=== PATIENT | female | born 1950 | race Caucasian/White ===

== ENCOUNTER 2019-08-09 15:05 | Outpatient (CLI) | payer MEDICARE, SELFPAY ==
--- NOTE | ~2019-08-09 | US_ITS ---
EXAMINATION: US venous doppler LE EXAM DATE: 08/09/2019 15:59 INDICATION: Bilateral leg swelling. TECHNIQUE: Multiple grayscale, color flow and Doppler images of the lower extremity deep venous syste ms bilaterally were obtained and reviewed. Comparison is made to prior examination from 06/14/2019. FINDINGS: Right side: The right common femoral, femoral and profunda veins demonstrate normal color flow, respi ratory variation, augmentation and compressibility. Compressibility, color flow confirmed within the right popliteal, posterior tibial, peroneal, and greater saphenous veins. Small Toribio's cyst. Left side: The left common femoral, femoral and profunda veins demonstrate normal color flow, respira tory variation, augmentation and compressibility. Compressibility, color flow confirmed within the l eft popliteal, posterior tibial, peroneal, and greater saphenous veins. Small Toribio's cyst. IMPRESSION: 1. No lower extremity deep venous thrombosis bilaterally. 2. Small bilateral Toribio's cysts. Reviewed, dictated and finalized at location B. S CLOSER
== END 2019-08-09 15:06 | disposition home or self-care (01) ==
LOC: ANHIMG 15:13
PROVIDERS: PCP Internal Medicine; Visit Provider Orthopaedic Surgery
DX: M79.89 Other specified soft tissue disorders (principal); M71.22 Synovial cyst of popliteal space [Baker], left knee; M71.21 Synovial cyst of popliteal space [Baker], right knee
CPT/HCPCS: 93970

== ENCOUNTER 2020-04-20 16:08 | Outpatient (CLI) | payer MEDICARE, SELFPAY ==
[2020-04-20 17:45] LABS: Iron 148 ug/dL (37-170)
[2020-04-20 17:47] LABS: Lactate Dehydrogenase 799 U/L (313-618)
[2020-04-20 18:08] LABS: Percent Iron Saturation 44 % (20-50)
[2020-04-20 20:41] LABS: Folic Acid > 20.0 ng/mL (2.76->20)
[2020-04-22 21:13] LABS: Antithrombin III Activity 111 % normal (80-135)
[2020-04-23 22:09] LABS: Lupus dRVVT 1:1 Mix Interpreta Not Indicated; Lupus dRVVT Screen 28 sec (<=45); PTT-LA Screen 27 sec (<=40)
== END 2020-04-20 16:09 | disposition home or self-care (01) ==
PROVIDERS: PCP Internal Medicine; Visit Provider Internal Medicine Hematology & Oncology
DX: I26.99 Other pulmonary embolism without acute cor pulmonale (principal); D64.9 Anemia, unspecified
CPT/HCPCS: 36415; 82607; 82728; 82746; 83090; 83540; 83550; 83615; 84443; 85300; 85303; 85306; 85613; 85730; 86146

== ENCOUNTER → 2020-04-25 11:10 | Outpatient (CLI) | payer MEDICARE, SELFPAY ==
--- NOTE | ~2020-04-25 | CT_ITS ---
EXAMINATION: CT chest w con DATE: 04/25/2020 12:16 INDICATION: Six-month follow-up of 5 mm left lower lobe nodule TECHNIQUE: Computed tomography (CT) of the chest was performed with 75 cc Omnipaque 350 intravenous c ontrast. Automated exposure control and iterative reconstruction technique were employed. Exam dose: 434.60 mGy-cm total exam DLP. COMPARISON: 01/18/2019 CT pulmonary scan FINDINGS: Stable 5 mm nodular soft tissue density in the dependent lower aspect of the left lower lob e, not significantly changed in 15 months, likely benign. Extensive bullous emphysema is again noted bilaterally. No interval pulmonary mass lesion or any infiltrate or consolidation is detected. No hilar or mediastinal mass lesion or lymphadenopathy. There is aortic and great vessel and coronary atherosclerotic calcification. Normal heart size. No pericardial or pleural effusion. 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 Small sliding hiatal hernia. There are 2 probable very small gallstones. IMPRESSION: Bullous emphysema Stable 5 mm nodular density in the dependent lower left lower lobe, stable for over 15 months, most c onsistent with benign process Reviewed, dictated and finalized at [facility]. Reviewed, dictated and finalized at location A. DCASTER IMPRESSION: Bullous emphysema Stable 5 mm nodular density in the dependent lower left lower lobe, stable for over 15 months, most consistent with benign process
[2020-04-25 11:51] LABS: Estimated Glomerular Filt Rate 55
== END ==
PROVIDERS: PCP Internal Medicine; Visit Provider Internal Medicine Hematology & Oncology
DX: J43.9 Emphysema, unspecified (principal)
CPT/HCPCS: 71260; Q9967

== ENCOUNTER 2020-04-27 14:58 | Outpatient (CLI) | payer MEDICARE, SELFPAY ==
[2020-04-27 15:36] LABS: Basophils Percent Auto 0.6 % (0.2-1.2); Eosinophils Absolute Auto 0.5 K/mm3 (0-0.3); Eosinophils Percent Auto 8.8 % (0-4.4); Hematocrit 25.9 % (37.0-47.0); Hemoglobin 8.2 g/dL (12.0-15.0); Immature Granulocyte Absolute 0.01 K/mm3 (0.00-0.031); Immature Granulocyte Percent A 0.2 % (0-0.5); Lymphocytes Absolute Auto 1.31 K/mm3 (0.9-3.2); Lymphocytes Percent Auto 25.6 % (18.3-44.2); Mean Corpuscular HGB Conc 31.7 g/dl (32-36); Mean Corpuscular Hemoglobin 30.1 pg (26-34); Mean Corpuscular Volume 95.2 fl (80-100); Mean Platelet Volume 10.5 fl (7.4-10.4); Monocytes Absolute Auto 0.8 K/mm3 (0.1-0.6); Monocytes Percent Auto 15.1 % (2.6-8.5); Neutrophils Absolute Auto 2.5 K/mm3 (1.3-6.7); Neutrophils Percent Auto 49.7 % (45.5-73.1); Nucleated Red Blood Cells Perc 0.4 % (0.0-0.2); Platelet Count Result 132 k/mm3 (150-375); Red Blood Count 2.72 M/mm3 (4.2-5.4); Red Cell Distribution Width 23.3 % (11.5-14.5); White Blood Count 5.1 K/mm3 (4.5-10.0)
[2020-04-27 18:03] LABS: Iron 68 ug/dL (37-170)
[2020-04-27 18:03] LABS: Alanine Aminotransferase 37 U/L (4-35); Albumin Level 4.1 g/dL (3.5-5.1); Alkaline Phosphatase 128 U/L (38-126); Anion Gap 6 mmol/L (8-16); Aspartate Amino Transferase 33 U/L (14-36); Bilirubin,Total 0.8 mg/dL (0.2-1.3); Blood Urea Nitrogen 27 mg/dL (7-17); Calcium 9.8 mg/dL (8.4-10.2); Carbon Dioxide 27 mmol/L (22-30); Chloride 105 mmol/L (98-107); Estimated Glomerular Filt Rate 49; Glucose 134 mg/dL (65-105); Potassium 4.3 mmol/L (3.4-5.0); Sodium 138 mmol/L (137-145)
[2020-04-27 18:15] LABS: Percent Iron Saturation 19 % (20-50)
[2020-05-01 10:55] LABS: Homocysteine 42.9 umol/L (<10.4)
== END 2020-04-27 14:59 | disposition home or self-care (01) ==
PROVIDERS: PCP Internal Medicine; Visit Provider Internal Medicine Hematology & Oncology
DX: D64.9 Anemia, unspecified (principal)
CPT/HCPCS: 36415; 80053; 82728; 83090; 83540; 83550; 85025; 86880

== ENCOUNTER 2020-10-31 09:58 | Outpatient (CLI) | payer MEDICARE, SELFPAY ==
[2020-10-31 10:27] LABS: Basophils Absolute Auto 0.1 K/mm3 (0.0-0.1); Basophils Percent Auto 0.9 % (0.2-1.2); Eosinophils Absolute Auto 0.5 K/mm3 (0-0.3); Eosinophils Percent Auto 6.4 % (0-4.4); Hematocrit 36.5 % (37.0-47.0); Hemoglobin 11.9 g/dL (12.0-15.0); Immature Granulocyte Absolute 0.02 K/mm3 (0.00-0.031); Immature Granulocyte Percent A 0.3 % (0-0.5); Lymphocytes Absolute Auto 1.91 K/mm3 (0.9-3.2); Mean Corpuscular HGB Conc 32.6 g/dl (32-36); Mean Corpuscular Hemoglobin 28.8 pg (26-34); Mean Corpuscular Volume 88.4 fl (80-100); Mean Platelet Volume 9.3 fl (7.4-10.4); Monocytes Absolute Auto 0.7 K/mm3 (0.1-0.6); Monocytes Percent Auto 8.7 % (2.6-8.5); Neutrophils Absolute Auto 4.5 K/mm3 (1.3-6.7); Neutrophils Percent Auto 58.7 % (45.5-73.1); Platelet Count Result 305 k/mm3 (150-375); Red Blood Count 4.13 M/mm3 (4.2-5.4); Red Cell Distribution Width 15.2 % (11.5-14.5); White Blood Count 7.6 K/mm3 (4.5-10.0)
[2020-11-02 20:51] LABS: Homocysteine 13.1 umol/L (<10.4)
== END 2020-10-31 09:59 | disposition home or self-care (01) ==
LOC: ANHLAB 10:00
PROVIDERS: PCP Internal Medicine; Visit Provider Internal Medicine Hematology & Oncology
DX: D64.9 Anemia, unspecified (principal); D68.69 Other thrombophilia
CPT/HCPCS: 36415; 83090; 85025

== ENCOUNTER 2021-09-19 09:16 | Outpatient (CLI) | payer MEDICARE, SELFPAY ==
[2021-09-19 09:42] LABS: Basophils Percent Auto 0.3 % (0.2-1.2); Eosinophils Absolute Auto 0.1 K/mm3 (0-0.3); Hematocrit 38.9 % (37.0-47.0); Immature Granulocyte Absolute 0.04 K/mm3 (0.00-0.031); Immature Granulocyte Percent A 0.4 % (0-0.5); Lymphocytes Percent Auto 21.5 % (18.3-44.2); Mean Corpuscular HGB Conc 30.8 g/dl (32-36); Mean Corpuscular Hemoglobin 29.1 pg (26-34); Mean Corpuscular Volume 94.4 fl (80-100); Mean Platelet Volume 9.9 fl (7.4-10.4); Monocytes Absolute Auto 0.6 K/mm3 (0.1-0.6); Monocytes Percent Auto 6.6 % (2.6-8.5); Neutrophils Absolute Auto 6.5 K/mm3 (1.3-6.7); Neutrophils Percent Auto 70.2 % (45.5-73.1); Platelet Count Result 227 k/mm3 (150-375); Red Blood Count 4.12 M/mm3 (4.2-5.4); Red Cell Distribution Width 15.8 % (11.5-14.5); White Blood Count 9.3 K/mm3 (4.5-10.0)
[2021-09-19 16:17] LABS: Anion Gap 5 mmol/L (8-16); Blood Urea Nitrogen 38 mg/dL (7-17); Calcium 9.1 mg/dL (8.4-10.2); Carbon Dioxide 29 mmol/L (22-30); Chloride 101 mmol/L (98-107); Estimated Glomerular Filt Rate 40; Glucose 227 mg/dL (65-110); Potassium 3.8 mmol/L (3.4-5.0); Sodium 135 mmol/L (137-145)
[2021-09-19 16:24] LABS: Iron 62 ug/dL (37-170)
[2021-09-19 16:34] LABS: Percent Iron Saturation 17 % (20-50)
[2021-09-24 02:19] LABS: Homocysteine 13.1 umol/L (<10.4)
== END 2021-09-19 09:17 | disposition home or self-care (01) ==
LOC: ANHLAB 09:19
PROVIDERS: PCP Internal Medicine; Visit Provider Internal Medicine Hematology & Oncology
DX: D68.69 Other thrombophilia (principal); R91.1 Solitary pulmonary nodule; D64.9 Anemia, unspecified
CPT/HCPCS: 36415; 80048; 82728; 83090; 83540; 83550; 85025

== ENCOUNTER 2021-11-14 09:36 | Outpatient (CLI) | payer MEDICARE, SELFPAY ==
--- NOTE | ~2021-11-14 | US_ITS ---
EXAMINATION: US venous doppler [facility] DATE: 11/14/2021 10:44 INDICATION: Lower limb edema. TECHNIQUE: Grayscale ultrasound images without and with compression and Doppler ultrasound images of the bilateral lower extremity veins were obtained. COMPARISON: Ultrasound 08/09/2019 FINDINGS: The visualized portions of right common femoral vein, profunda (deep) femoral vein, femoral vein, pop liteal vein, peroneal veins, posterior tibial veins, and greater saphenous vein outflow are patent. The visualized portions of left common femoral vein, profunda femoral vein, femoral vein, popliteal v ein, peroneal veins, posterior tibial veins, and greater saphenous vein outflow are patent. IMPRESSION: 1. No deep venous thrombosis. Reviewed, dictated and finalized at location A.
== END 2021-11-14 09:37 | disposition home or self-care (01) ==
PROVIDERS: PCP Internal Medicine; Visit Provider Internal Medicine Endocrinology, Diabetes & Metabolism
DX: R60.0 Localized edema (principal)
CPT/HCPCS: 93970

== ENCOUNTER 2023-04-08 13:46 | Outpatient (CLI) | payer MEDICARE, SELFPAY ==
[2023-04-08 14:03] LABS: Basophils Absolute Auto 0.1 K/mm3 (0.0-0.1); Basophils Percent Auto 0.7 % (0.2-1.2); Eosinophils Absolute Auto 0.4 K/mm3 (0-0.3); Eosinophils Percent Auto 4.7 % (0-4.4); Hematocrit 32.8 % (37.0-47.0); Hemoglobin 10.5 g/dL (12.0-15.0); Immature Granulocyte Absolute 0.02 K/mm3 (0.00-0.031); Immature Granulocyte Percent A 0.2 % (0-0.5); Lymphocytes Absolute Auto 2.07 K/mm3 (0.9-3.2); Lymphocytes Percent Auto 25.8 % (18.3-44.2); Mean Corpuscular Hemoglobin 26.6 pg (26-34); Mean Platelet Volume 9.3 fl (7.4-10.4); Monocytes Absolute Auto 0.7 K/mm3 (0.1-0.6); Monocytes Percent Auto 8.2 % (2.6-8.5); Neutrophils Absolute Auto 4.8 K/mm3 (1.3-6.7); Neutrophils Percent Auto 60.4 % (45.5-73.1); Platelet Count Result 248 k/mm3 (150-375); Red Blood Count 3.95 M/mm3 (4.2-5.4); Red Cell Distribution Width 16.5 % (11.5-14.5)
[2023-04-08 17:02] LABS: Iron 38 ug/dL (37-170)
[2023-04-08 17:08] LABS: Anion Gap 7 mmol/L (8-16); Blood Urea Nitrogen 29 mg/dL (7-17); Carbon Dioxide 26 mmol/L (22-30); Chloride 104 mmol/L (98-107); Estimated Glomerular Filt Rate 37; Glucose 131 mg/dL (65-110); Potassium 4.1 mmol/L (3.4-5.0); Sodium 137 mmol/L (137-145)
[2023-04-08 17:19] LABS: Percent Iron Saturation 14 % (20-50)
[2023-04-10 20:29] LABS: Homocysteine 17.2 umol/L (<10.4)
== END 2023-04-08 13:47 | disposition home or self-care (01) ==
LOC: ANHLAB 13:48
PROVIDERS: Visit Provider Internal Medicine Hematology & Oncology
DX: D64.9 Anemia, unspecified (principal)
CPT/HCPCS: 36415; 80048; 82728; 83090; 83540; 83550; 85025